=== PATIENT | male | born 1995 | race Caucasian/White ===

== ENCOUNTER 2017-10-03 14:20 | Emergency (ER) | payer SELFPAY ==
[~2017-10-03] VITALS: Ht 170.2 cm; Wt 61.4 kg
[2017-10-03 18:00] VITALS: BP 123/16
== END 2017-10-03 18:57 | disposition home or self-care (01) ==
LOC: EDSEX 14:21 → EMS 14:21
DX: F91.8 Other conduct disorders (principal); F12.90 Cannabis use, unspecified, uncomplicated
CPT/HCPCS: 99285

== ENCOUNTER 2017-12-14 23:34 | Emergency (ER) | payer SELFPAY ==
[~2017-12-14] VITALS: Ht 165.1 cm; Wt 59.1 kg
[2017-12-15 00:25] LABS: AMPHET/METH SCREEN,URINE NEGATIVE (NEGATIVE); BARBITURATE SCREEN, URINE NEGATIVE (NEGATIVE); BENZODIAZEPINES SCREEN,URINE NEGATIVE (NEGATIVE); CANNABINOID SCREEN,URINE POSITIVE (NEGATIVE); COCAINE SCREEN,URINE NEGATIVE (NEGATIVE); METHADONE SCREEN, URINE NEGATIVE (NEGATIVE); OPIATE SCREEN,URINE NEGATIVE (NEGATIVE)
[2017-12-15 00:26] LABS: PHENCYCLIDINE SCREEN,URINE NEGATIVE (NEGATIVE)
[2017-12-15 02:16] VITALS: BP 119/74
== END 2017-12-15 02:32 | disposition home or self-care (01) ==
LOC: EMS 23:35
DX: F91.8 Other conduct disorders (principal); F12.90 Cannabis use, unspecified, uncomplicated
CPT/HCPCS: 99285